=== PATIENT | male | born 1995 | race Caucasian/White ===

== ENCOUNTER 2022-12-31 09:04 | Day surgery (SDC) | payer OTHER, SELFPAY ==
--- NOTE | 2022-12-31 | PATH_ITS ---
[facility] Accession Number: [id number] No. of containers..02 Tissue . 01 Material submitted: . PART A: duodenum - DUODENLA PART B: gastrointestinal site - ANTRUM . 01 Diagnosis: A. Duodenum, Biopsy: Duodenal mucosa with no diagnostic abnormality. Negative for active inflammation, features of sprue, dysplasia, or malignancy. . B. Gastric Antrum, Biopsy: Gastric antral mucosa with mild chronic inflammation. Negative for Helicobacter organisms by immunohistochemistry. Negative for intestinal metaplasia. Negative for dysplasia or malignancy. [facility] 01/10/2023 1655 Local . 01 Electronically signed: . Surendra Ricci MD, PhD, Pathologist NPI- [id number] . 01 Gross description: . Part A: DUODENLA: Received in formalin is 3 fragment(s) of munoz, soft tissue measuring 0.3 x 0.3 x 0.2 cm to 0.2 x 0.2 x 0.1 cm submitted entirely in 1 cassette(s) Part B: ANTRUM: Received in formalin is 2 fragment(s) of munoz, soft tissue measuring 0.2 x 0.1 x 0.1 cm to 0.1 x 0.1 x 0.1 cm submitted entirely in 1 cassette(s) /AA 01/01/2023 0149 Local . 01 Microscopic: . B. An immunohistochemical stain is performed to evaluate for Helicobacter organisms, and is negative. A control stain shows appropriate reactivity. . * This test was developed and its performance characteristics determined by [employer]. It has not been cleared or approved by the U.[place]. Food and Drug Administration. The FDA has determined that such clearance or approval is not necessary. This test is used for clinical purposes. It should not be regarded as investigational or for research. . 01 Pathologist provided ICD-10: K29.70 . 01 CPT . 725220, 718624, M70138 Specimen Comment: A courtesy copy of this report has been sent to [phone] Performed at: 01 [facility] [address] [place] [address], [place], [place] [id number] MD Jamil Foss MD Phone: [phone]
--- NOTE | 2022-12-31 07:57 | SUR.PREOP ---
pt 25 mins late. left message on cell phone. pt returned call . Is still 30 mins away. is en route
[2022-12-31] MEDS: LACTATED RINGERS 1,000 ML 100 ML IV (09:18)
[2022-12-31 09:30] VITALS: BP 118/73; PULSE 74; RESP 16; TEMP 36.3; O2SAT 100; BMI 23.2
--- NOTE | 2022-12-31 09:37 | P.HP_ITS ---
History of Present Illness History of Present Illness Date Patient Seen: 12/31/22 Time Patient Seen: 09:37 Chief complaint: EGD & Colonoscopy w/poss bx's Narrative: I reviewed my recent office note. No significant changes. [facility] Social History household members: spouse alcohol intake: current Review of Systems Review of Systems ROS: Yes All systems reviewed with the patient and are negative except as otherwise documented Exam Vital Signs (past 8 hours): - 12/31/22 09:30 Temperature 97.4 F L Pulse Rate 74 Respiratory Rate 16 Blood Pressure 118/73 Pulse Oximetry 100 Oxygen Delivery Method Room Air Oxygen Delivery Method Room Air Const General: cooperative HENMT Head: normal to inspection Eyes General: appearance normal, both eyes and all related structures Neck Neck: normal visual inspection Chest Chest: normal inspection of the chest Resp Effort & Inspection: normal respiratory effort Cardio Rate: regular rate GI Inspection: normal to inspection Skin General: no rashes or lesions noted Neuro General: patient alert and patient awake Extrem General: normal to inspection and no pedal edema Psych Appearance: grossly normal Assessment & Plan Assessment & Plan narrative: 27-year-old male with symptoms of abdominal pain bloating plus a change in bowel habit (constipation). EGD and colonoscopy are pursued today.
--- NOTE | 2022-12-31 09:38 | PM.PREOP ---
Pre-operative Note Interval Note History & Physical reviewed/Exam performed by Physician: Yes Changes to H&P: No ASA Class (for procedural sedation): I
--- NOTE | 2022-12-31 10:55 | PM.OP.EC ---
Operative Date/Time/Diagnoses Date of procedure: 12/31/22 Time of procedure: 10:55 Pre-op diagnosis: Abdominal pain, bloating, altered bowel habit, constipation Post-op diagnosis: same Procedure & Clinicians Study performed: EGD with biopsies and a limited sigmoidoscopy Same procedure as scheduled: No Indications: Abdominal pain, bloating, altered bowel habit, constipation Surgeon: Rocky Carpenter Procedure Notes SCOAP/Timeout: Done Procedure in detail: After the risks and benefits were explained, written and verbal informed consent was obtained. The patient was brought into the procedure room and placed into the left lateral decubitus position. Please see anesthesia notes for sedation details. The scope was introduced into the mouth through the bite block and advanced under direct visualization to the 2nd portion of the duodenum. The scope was slowly withdrawn carefully examining the mucosa for any defects or lesions. Retroflexed views were accomplished in the stomach. The stomach was decompressed, the scope was then removed from the patient who tolerated the procedure well. The patient was then turned around. A digital rectal examination was accomplished. The scope was introduced into the rectum and advanced to approximately just beyond the rectosigmoid junction. We encountered a large amount of formed solid stool. This made it unsafe and not possible to navigate beyond this depth to a more proximal location. Less than 20 cm of scope was introduced. I slowly withdrew and removed all the excess gas. The scope was removed from the patient who tolerated the procedure well. Pediatric colonoscope Bowel prep poor/unsatisfactory Scope withdrawal time: Not applicable Sedation minutes: 17 Complications: none Impression: 1. Duodenum: This was visually normal from the bulb through to the 2nd portion. Random D2 biopsies were taken for exclusion of sprue in light of symptoms. 2. Stomach: Patient had a mild gastropathy characterized by diffuse mild mucosal erythema and therefore biopsies were taken from the antrum for exclusion of H pylori. Retroflexed views of the LES were unremarkable. 3. Esophagus: The squamocolumnar junction correlated with the top of the gastric folds. GEJ was at 40 cm from the incisors. No esophageal pathology appreciated throughout. 4. Colon: This was an incomplete exam secondary to formed stool being identified just beyond the rectosigmoid junction. I could not navigate beyond this depth. No significant distal pathology was appreciated. The anorectal exam on digital was unremarkable. Endoscopic diagnosis 1. Mild gastropathy 2. Otherwise visually unremarkable EGD 3. Poor bowel prep 4. Incomplete colonoscopy Post-procedure Plan for aftercare: 1. Await histopathology 2. Consider taking a couple of enemas today [id number] (Fleet's Phospho-Soda) about 90 minutes apart to clear out the left colon. 3. After that, proceed with a more aggressive bowel regimen including twice daily [id number] supplemental fiber plus daily MiraLax. 4. Consider repeat colonoscopy with extended bowel prep as soon as possible to complete the examination. Disposition: PACU
[2022-12-31 11:07] VITALS: BP 85/50; PULSE 52; RESP 14; O2SAT 98
[2022-12-31 11:12] VITALS: BP 89/53; PULSE 48; RESP 14; O2SAT 98
[2022-12-31 11:17] VITALS: BP 95/40; PULSE 53; RESP 12; TEMP 37; O2SAT 99
[2022-12-31 11:22] VITALS: BP 102/69; PULSE 51; RESP 14; O2SAT 99
[2022-12-31 11:49] VITALS: BP 112/70; PULSE 72; RESP 16; TEMP 36.2; O2SAT 98
== END 2022-12-31 12:07 | disposition home or self-care (01) ==
PROVIDERS: Referring Provider Internal Medicine Gastroenterology; Visit Provider Internal Medicine Gastroenterology
PROC: 0DJ08ZZ Inspection of Upper Intestinal Tract, Via Natural or Artificial Opening Endoscopic (ICD-10-PCS; CPT 43235; principal; 2022-12-31 08:30)
PROC: 0DJD8ZZ Inspection of Lower Intestinal Tract, Via Natural or Artificial Opening Endoscopic (ICD-10-PCS; CPT 45378; 2022-12-31 08:30)
DX: R10.9 Unspecified abdominal pain (principal); R14.0 Abdominal distension (gaseous); K59.00 Constipation, unspecified; Z53.09 Procedure and treatment not carried out because of other contraindication; K29.50 Unspecified chronic gastritis without bleeding
CPT/HCPCS: 45378; 43239; J2704